=== PATIENT | female | born 1985 | race Caucasian/White ===

== ENCOUNTER 2018-01-28 22:51 | Emergency (ER) | payer SELFPAY ==
[2018-01-29 00:25] LABS: UA SPECIFIC GRAVITY 1.015 (1.005-1.035); microscopic required? YES; urine erythrocyte 3+ (NEGATIVE)
[2018-01-29 01:21] VITALS: BP 100/83
== END 2018-01-29 01:21 | disposition home or self-care (01) ==
LOC: ED 22:51
PROVIDERS: Emergency Medicine
DX: N12 Tubulo-interstitial nephritis, not specified as acute or chronic (principal); Z88.8 Allergy status to other drugs, medicaments and biological substances
CPT/HCPCS: J1885

== ENCOUNTER 2018-01-31 21:57 | Emergency (ER) | payer MEDICAID ==
[~2018-01-31] VITALS: Ht 157.5 cm; Wt 57.1 kg
[2018-01-31 22:14] VITALS: Ht 157.5 cm; Wt 57.1 kg
[2018-02-01 00:18] LABS: UA SPECIFIC GRAVITY 1.025 (1.005-1.035); microscopic required? YES; urine erythrocyte 3+ (NEGATIVE)
[2018-02-01 01:05] VITALS: BP 102/57
== END 2018-02-01 01:05 | disposition home or self-care (01) ==
LOC: ED 21:57
PROVIDERS: Emergency Medicine
DX: S39.012A Strain of muscle, fascia and tendon of lower back, initial encounter (principal); K59.00 Constipation, unspecified; Z88.1 Allergy status to other antibiotic agents; X58.XXXA Exposure to other specified factors, initial encounter; Y93.89 Activity, other specified; Y92.89 Other specified places as the place of occurrence of the external cause; Y99.8 Other external cause status
CPT/HCPCS: J1885